=== PATIENT | female | born 1965 | race Caucasian/White ===

== ENCOUNTER → 2019-08-13 16:36 | Outpatient (BNVA) | payer OTHER, SELFPAY | PROVIDERS: Family Provider Nurse Practitioner Family; PCP Nurse Practitioner Family; Visit Provider Registered Nurse | DX: E03.9 Hypothyroidism, unspecified (principal); F41.1 Generalized anxiety disorder | CPT/HCPCS: 84443 ==

== ENCOUNTER → 2021-05-26 11:45 | Outpatient (BNVA) | payer OTHER, SELFPAY | PROVIDERS: Family Provider Nurse Practitioner Family; PCP Registered Nurse; Visit Provider Registered Nurse | DX: E03.9 Hypothyroidism, unspecified (principal); F41.1 Generalized anxiety disorder; F41.8 Other specified anxiety disorders; N95.1 Menopausal and female climacteric states; F17.210 Nicotine dependence, cigarettes, uncomplicated | CPT/HCPCS: 84443 ==

== ENCOUNTER → 2021-07-16 11:00 | Outpatient (BNVA) | payer SELFPAY | PROVIDERS: Family Provider Nurse Practitioner Family; PCP Registered Nurse; Visit Provider Registered Nurse | DX: E78.5 Hyperlipidemia, unspecified (principal); F41.8 Other specified anxiety disorders; E03.9 Hypothyroidism, unspecified; E55.9 Vitamin D deficiency, unspecified; E66.9 Obesity, unspecified | CPT/HCPCS: 80053; 80061; 82306; 84443; 85025 ==

== ENCOUNTER → 2021-09-14 13:26 | Outpatient (BNVA) | payer SELFPAY | PROVIDERS: Family Provider Nurse Practitioner Family; PCP Registered Nurse; Visit Provider Nurse Practitioner Family | DX: S99.912A Unspecified injury of left ankle, initial encounter (principal); X58.XXXA Exposure to other specified factors, initial encounter; M77.32 Calcaneal spur, left foot | CPT/HCPCS: 73600 ==

== ENCOUNTER 2021-09-21 14:54 | Outpatient (CLI) | payer SELFPAY | END 2021-09-21 14:55 | disposition home or self-care (01) | LOC: SPT 14:55 | PROVIDERS: Family Provider Nurse Practitioner Family; PCP Registered Nurse; Visit Provider Podiatrist Foot & Ankle Surgery | DX: Z46.89 Encounter for fitting and adjustment of other specified devices (principal); M25.572 Pain in left ankle and joints of left foot; M84.372D Stress fracture, left ankle, subsequent encounter for fracture with routine healing; S86.312D Strain of muscle(s) and tendon(s) of peroneal muscle group at lower leg level, left leg, subsequent encounter; X58.XXXD Exposure to other specified factors, subsequent encounter | CPT/HCPCS: 97760; L4361 ==

== ENCOUNTER 2021-10-05 15:48 | Outpatient (CLI) | payer SELFPAY | END 2021-10-05 15:49 | disposition home or self-care (01) | LOC: SPT 15:48 | PROVIDERS: Family Provider Nurse Practitioner Family; PCP Registered Nurse; Visit Provider Podiatrist Foot & Ankle Surgery | DX: Z46.89 Encounter for fitting and adjustment of other specified devices (principal); M25.572 Pain in left ankle and joints of left foot | CPT/HCPCS: 97760; L1902 ==

== ENCOUNTER 2021-11-26 12:45 | Day surgery (SDC) | payer OTHER, SELFPAY ==
[2021-11-25 13:03] VITALS: BMI 34.9
[2021-11-26] VITALS (7 sets, daily range): BP systolic 130–147; BP diastolic 72–98; PULSE 61–76; RESP 16–18; TEMP 36.3–36.9; O2SAT 93–99
--- NOTE | 2021-11-26 | XR_ITS ---
WS: [id number] Left ankle, C-arm fluoroscopy, 11/26/2021 Clinical Data: GERALDINE PICS Comparison: None. Findings: AP and lateral C-arm images of the left ankle are underpenetrated. There are orthopedic pins which ov erlie the talus. XR/XR ankle LT min 3V* [id number] Impression: Orthopedic intervention into the left talus.
--- NOTE | 2021-11-26 | SCC_ITS ---
Procedure done: 1. Left lateral ankle ligament repair/modified Brostr?m with internal brace CPT 62207 2. Left peroneus brevis tendon repair CPT 99639-23 3. Left foot open plantar fasciotomy CPT 82688-9 33 seconds of fluoroscopic guidance, for a cumulative dose of 0.7 mGy, was provided to Dr. Owen by the radiology department. C-arm images of the LEFT ankle were saved for the patient's permanent record. [facility]
[2021-11-26] MEDS: gabapentin 300 mg Capsule PO (13:47)
[2021-11-26] MEDS: sodium chloride 0.9% 1,000 ML 30 ML IV (13:47)
[2021-11-26] MEDS: CELEcoxib 200 mg Capsule 400 MG PO (13:48)
[2021-11-26] MEDS: midazolam 1 mg/mL INJ 2 mL 2 MG IVP ×2 (14:03→15:25)
--- NOTE | 2021-11-26 15:06 | ANES.PREANE2 ---
Pre-Anesthetic Assessment Height/Weight: Height 1.73 m Weight 104.326 kg Temp Pulse Resp BP Pulse Ox O2 Del Method 98.5 F 69 18 131/88 99 11/26/21 13:22 11/26/21 13:22 11/26/21 13:22 11/26/21 13:22 11/26/21 13:22 11/26/21 13:34 Preop Diagnosis: Left peroneal tendon tear, chronic ankle instability Operation Date: 11/26/21 14:35 Proposed Procedures p Left peroneal tendon repair CPT 50804; 2. Left ankle modified Brostrom repair CPT 24813 S86.3312A,M25.372,S93.492D(Left) - Tobi Owen DPM s Brostrom Procedure Modified Mingstrom(Left) - Tobi Owen DPM Familial anesthetic complications: none Was Beta Bud taken within 24 hours: N/A Was Clonidine taken within 24 hours: N/A Last intake: Intake Last Liquid Date 11/26/21 Last Liquid Time 10:00 Last Solid Date 11/25/21 Last Solid Time 23:59 Social Tobacco and No alcohol Exam alert, oriented x 3 and regular rate & rhythm Airway Submandibular: within normal limits Cervical ROM: within normal limits Mallampati: Class II Dentition: full Pulmonary Chronic Obstructive Pulmonary Disease Metabolic Morbid Obesity and Thyroid Disease Neuropsych Anxiety and Depression Anesthetic Plan ASA status: 3 Anesthesia: General and Regional (specify below) (pop blk) Medications/Allergies Home Medications Medication Instructions Recorded Confirmed Last Taken Type buspirone 10 mg tablet 30 mg PO DAILY anxiety 05/26/21 11/26/21 11/25/21 History levothyroxine 125 mcg tablet See Rx Instructions .Route 05/27/21 11/26/21 11/26/21 Rx .COMPLEX #90 tabs cholecalciferol (vitamin D3) 1,250 50,000 unit PO .once a week 09/15/21 11/26/21 11/25/21 Rx mcg (50,000 unit) capsule days #12 caps Cam Boot #1 ea 09/21/21 11/13/21 Unknown Rx ASO brace #1 ea 10/05/21 11/13/21 Unknown Rx fluoxetine 20 mg capsule See Rx Instructions .Route 11/16/21 11/26/21 11/25/21 Rx .COMPLEX #90 caps Allergies Allergy/AdvReac Type Severity Reaction Status Date / Time benzocaine Allergy Unknown Verified 11/25/21 12:59 tioconazole Allergy rash Verified 11/25/21 12:59 [From Monistat 1 (tioconazole)] Current Medications Generic Name Dose Route Start Last Admin Trade Name Freq PRN Reason Stop Dose Admin Sodium Chloride 1,000 mls @ 30 mls/hr 11/26/21 13:15 11/26/21 13:47 Sodium Chloride 0.9% IV 11/27/21 13:14 30 mls/hr .Q24H JOE Administration Midazolam HCl 2 mg 11/26/21 13:05 11/26/21 14:03 Midazolam 1 Mg/Ml Inj 2 Ml IVP 2 mg Q5M PRN Administration Preop Anxiety PFSH Anesthesia Medical History Cigarette smoker Vitamin D deficiency Social History Smoking and tobacco status: current every day smoker Alcohol intake: never Adopted: No Caregiver/support person: No Lives independently: No Household members: spouse Marital status: service: No Current occupational status: employed Sexually active: Yes Current gender identity: Female Data Anesthesia Cardiac Studies: No Data to Display
--- NOTE | 2021-11-26 16:52 | W.PM.OPSUD ---
Surgery/Procedure H&P Update DATE OF PROCEDURE: November 26, 2021 DATE H&P PERFORMED: 11/13/21 CHANGES TO PREVIOUS DOCUMENTATION: No changes PREOP DIAGNOSIS: Left peroneal tendon tear, chronic ankle instability PRIMARY INDICATION FOR PROCEDURE: Left lateral ankle instability, peroneal tendon tear, chronic plantar fasciitis PLANNED PROCEDURE: Operation Date: 11/26/21 14:35 Proposed Procedures p Left peroneal tendon repair CPT 86485; 2. Left ankle modified Brostrom repair CPT 88655 S86.3312A,M25.372,S93.492D(Left) - Tobi Owen DPM s Martínez Procedure Modified Martínez(Left) - Tobi Owen DPM
[2021-11-26] MEDS: ceFAZolin 2,000 MG in sodium chloride 0.9% (plus) 50 ML 100 MG IV (17:17)
[2021-11-26] MEDS: HYDROcodone-acetaminophen 5-325 mg Tablet 1 TAB PO (19:52)
--- NOTE | 2021-11-26 21:45 | P.OP_ITS ---
Operative Report Date of procedure: November 26, 2021 Pre-op diagnosis: Preop Diagnosis Left peroneal tendon tear, chronic ankle instability, plantar fasciitis Post-op diagnosis: Same Post-op findings: Large split longitudinal tear peroneus brevis tendon of left ankle from the retromalleolar region extending distally approximately 6 cm Procedure done: 1. Left lateral ankle ligament repair/modified Brostr?m with internal brace CPT 59846 2. Left peroneus brevis tendon repair CPT 74567-45 3. Left foot open plantar fasciotomy CPT 00520-81 Implants: Internal brace from [employer], suture tack anchors x3 from [employer], amnion matrix tendon repair from [employer] Pathology: None Surgeon: Dr. Tobi Owen, D.P.M. Estimated blood loss: Less than 20 Complications: None Findings: See above Brief History: Patient has a longstanding history of lateral ankle instability and peroneal tendon issues. Patient also has longstanding plantar fasciitis. Conservative measures have been attempted to this point and the patient has opted for surgic al intervention at this time. Procedure: Patient is a 56-year-old female that has a history of plantar fasciitis, chronic ankle instability and peroneal tendon tear all to the left foot and ankle. The patient has had the aforementioned chief complaint for some time. Conservative treatment measures have been attempted and the patient has opted for surgical intervention at this time. A lengthy discussion regarding the procedure, including risks and complications has been had with the patient and is noted in the recent clinic note. Written and verbal consent have been obtained. All patient questions have been answered to the patient?s satisfaction. No written or verbal guarantees have been given or implied. The patient has been NPO since midnight. The history has been reviewed and the history and physical is current. The signed consent was confirmed and placed in the patient chart. Patient imaging has been reviewed and is consistent with the diagnosis. Under mild sedation, the patient was brought into the operating room and placed on the table in the supine position. IV antibiotics were given by the anesthesia team as preoperative surgical prophylaxis. General sedation was then performed by the anesthesia team. A popliteal block was performed by the anesthesia department. A pneumatic tourniquet was then placed about the left th igh. The operative extremity was then prepped and draped in the usual fashion. The extremity was then elevated and exsanguinated before the tourniquet was inflated to 325 mmHg. After inflation, the following procedure was then performed. Attention was directed to the lateral aspect of the left ankle where an 8 cm incision was made following the course of the peroneal tendons and over the lateral malleolus. Dissection was carried down through subcutaneous and superficial fascia. All bleeders were cauterized as necessary. Dissection was carried down to the peroneal tendon sheath which was incised from the distal aspect of the fibula and reflected to expose the underlying peroneal tendons. The peroneal tendons were examined. The peroneus longus was noted to be healthy and tubular in shape with no tears or signs of degeneration. Upon further inspecting the peroneal tendon sheath it was noted to be full of tenosynovitis and inflammation tissue. This was sharply excised using a #15 blade. Peroneus brevis was then visualized and was noted to be flattened and degenerative with a large longitudinal split tear measuring approximately 6 cm in length. There was also noted to be a low-lying peroneus brevis muscle belly in the retromalleolar region. A #15 blade was used to excise the disease portion of the peroneus brevis tendon as well as a portion of the low-lying muscle belly. The tenosynovitis in this area was also sharply excised using a #15 blade. Next, attention was directed to retubularization of the peroneus brevis tendon. Using 2-0 Ethibond the peroneus brevis tendon was retubularized. Next, attention was directed to the lateral ankle ligaments. The anterior talofibular ligament. Wispy and degenerative. A #15 blade was used to excise this from the fibula and reflected anteriorly. Next, a stab incision was made just distal to this down to the level of the talus. The guide for the internal brace was then inserted into this stab incision and the guidewire was driven into the talus in preparation for the internal brace. Next, the guidewire was overdrilled and tapped before the swivel lock anchor was inserted into the talus. Good positioning of this was visualized on C-arm imaging prior to insertion of the swivel lock. Next attention was directed to the anterior fibula where 2 holes were drilled for the suture tack anchors. These were inserted in standard fashion. A hole for the internal brace was then drilled into the fibula as well. The suture tacks were then passed through the anterior talofibular ligament to perform the Brostr?m repair. The internal brace was then inserted into the fibula to augment the repair. Next, attention was directed to the distal fibula a suture tack anchor was inserted into the distal fibula and the arms of the suture tack were passed through the peroneal tendon sheath and superior peroneal retinaculum. Next, the amnion matrix from [employer] was used to wrap the peroneus brevis tendon. The tendon sheath and superior retinaculum were then tensioned down and closed. The site was lightly irrigated with sterile saline before attention was directed to closure. Deep tissue was closed with 2-0 Vicryl followed by subcuticular closure with 4-0 Vicryl and skin closed with 4-0 nylon in running interlocking fashion. Attention was then directed to the plantar aspect of the left foot at the level of the medial tubercle of the posterior calcaneal tuberosity. A #15 blade was used to make a 1 cm stab incision over this area. Blunt dissection was carried down to the level of the plantar fascia using a hemostat. Upon visualizing the medial and central bands of the plantar fascia and #15 blade was used to transect the medial band. Good release of this medial band was felt with engagement of the windlass mechanism. The site was then irrigated with sterile saline before being closed with 4-0 nylon in horizontal mattress fashion. All incision sites were then anesthetized further with 20 cc of Exparel. The incision sites were dressed with Xeroform 4 x 4 gauze Kerlix before being placed in a well-padded below the knee posterior splint. The tourniquet was let down good hyperemic response was noted to all digits of the left foot. The patient tolerated the procedure and anesthesia well and without complication. The patient was transported from the operating room to the recovery room with vital signs stable and vascular status intact to all digits of the left foot. The patient was given both written and verbal instructions to remain strict nonweightbearing to the operative extremity, to keep dressings/splint clean, dry and intact and to take pain medication as directed. The patient will follow-up in the outpatient setting at their scheduled appointment. The patient was discharged with my personal number and was instructed to call if any questions or issues should arise. They were discharged home once anesthesia criteria was met.
--- NOTE | 2021-11-26 23:15 | ANE.PACU2 ---
Inpatient post-anesthesia follow up: Airway intact: Yes Vital signs: Temperature 97.4 F Pulse Rate 64 Respiratory Rate 18 Blood Pressure 140/79 Pulse Oximetry 98 Oxygen Delivery Me thod Room Air Oxygen Flow Rate 6 Fraction of Inspir ed Oxygen Hydration adequate: Yes Nausea and vomiting: No Pain level: 2 Mental status: Baseline
== END 2021-11-26 20:10 | disposition home or self-care (01) ==
PROVIDERS: PCP Registered Nurse; Visit Provider Podiatrist Foot & Ankle Surgery
PROC: (CPT 27659; principal; 2021-11-26 14:25)
PROC: (CPT 27698; 2021-11-26 14:25)
DX: S86.312A Strain of muscle(s) and tendon(s) of peroneal muscle group at lower leg level, left leg, initial encounter (principal); M25.372 Other instability, left ankle; M72.2 Plantar fascial fibromatosis; J44.9 Chronic obstructive pulmonary disease, unspecified; E66.01 Morbid (severe) obesity due to excess calories; Z68.35 Body mass index [BMI] 35.0-35.9, adult; F41.9 Anxiety disorder, unspecified; F32.A Depression, unspecified; F17.210 Nicotine dependence, cigarettes, uncomplicated; E55.9 Vitamin D deficiency, unspecified
CPT/HCPCS: 27659; 27698; 28008; 73610; 76000; C1713; C1762; C9290; J1100; J2250; J2405; J2704; J2795; J3010; J7030

== ENCOUNTER → 2022-03-23 15:49 | Outpatient (BNVA) | payer OTHER, SELFPAY | PROVIDERS: PCP Registered Nurse; Visit Provider Registered Nurse | DX: E53.8 Deficiency of other specified B group vitamins (principal); F41.8 Other specified anxiety disorders; R73.9 Hyperglycemia, unspecified; E55.9 Vitamin D deficiency, unspecified | CPT/HCPCS: 80053; 82306; 82607; 83036; 85025 ==

== ENCOUNTER → 2022-04-16 14:00 | Outpatient (BNVA) | payer OTHER, SELFPAY | PROVIDERS: PCP Registered Nurse; Visit Provider Nurse Practitioner Women's Health | DX: Z12.4 Encounter for screening for malignant neoplasm of cervix (principal) | CPT/HCPCS: 87624 ==

== ENCOUNTER 2022-05-06 11:40 | Outpatient (CLI) | payer OTHER, SELFPAY ==
--- NOTE | 2022-05-06 11:51 | MM_ITS ---
WS: [id number] BILATERAL SCREENING DIGITAL TOMOSYNTHESIS MAMMOGRAM WITH CAD HISTORY: Screening. COMPARISON: 03/06/2020 and 09/19/2017 Bilateral CC and MLO views with tomosynthesis and synthetic mammography submitted. Computer aided det ection analyzed. Breast composition: The breasts are heterogeneously dense, which may obscure small masses. No suspici ous masses, microcalcifications or architectural distortion. Stable 5 mm nodule central LEFT breast. MM/[place] [id number] IMPRESSION: BI-RADS: 2-Benign FOLLOW UP: 1 Year Follow-up
== END 2022-05-06 11:41 | disposition home or self-care (01) ==
PROVIDERS: PCP Registered Nurse; Visit Provider Nurse Practitioner Women's Health
DX: Z12.31 Encounter for screening mammogram for malignant neoplasm of breast (principal)
CPT/HCPCS: 77063; 77067

== ENCOUNTER → 2022-09-21 11:33 | Outpatient (BNVA) | payer OTHER, SELFPAY | PROVIDERS: PCP Registered Nurse; Visit Provider Registered Nurse | DX: F41.8 Other specified anxiety disorders (principal); E03.9 Hypothyroidism, unspecified | CPT/HCPCS: 80053; 84443 ==

== ENCOUNTER 2023-05-26 13:43 | Outpatient (CLI) | payer OTHER, SELFPAY ==
--- NOTE | 2023-05-26 15:00 | MM_ITS ---
WS: [id number] VIEWS: MLO and CC views both breasts. 3D digital tomosynthesis is also included in this exam. Comparison made with prior exam of 05/09/2012, 01/07/2016, 09/19/2017, 03/06/2020, 05/06/2022.. Findings: There was no sign of mass, architectural distortion or suspicious calcification in either breast. The re are scattered areas of fibroglandular density Impression: MM/[place] [id number] BI-RADS: 2-Benign finding. FOLLOW-UP: 1 Year Follow-up This mammogram was also analyzed by the Computer Aided Detection System R2 Imag e Sandwich Wrapper.
== END 2023-05-26 13:44 | disposition home or self-care (01) ==
LOC: RAD 13:43
PROVIDERS: PCP Registered Nurse; Visit Provider Nurse Practitioner Women's Health
DX: Z12.31 Encounter for screening mammogram for malignant neoplasm of breast (principal)
CPT/HCPCS: 77063; 77067

== ENCOUNTER → 2024-07-17 14:34 | Outpatient (BNVA) | payer OTHER, SELFPAY | PROVIDERS: PCP Registered Nurse; Visit Provider Registered Nurse | DX: E53.8 Deficiency of other specified B group vitamins (principal) | CPT/HCPCS: 82607 ==

== ENCOUNTER 2024-08-15 12:43 | Outpatient (CLI) | payer OTHER, SELFPAY ==
--- NOTE | 2024-08-15 12:40 | MM_ITS ---
WS: [id number] BILATERAL 3D TOMOSYNTHESIS DIGITAL SCREENING MAMMOGRAPHY WITH CAD CLINICAL INFORMATION: Z12.31 - Encounter for screening mammogram for malignant ... HISTORY: Screening mammogram. No current complaints. COMPARISON: 2023 TECHNIQUE: Bilateral CC and MLO views. FINDINGS: Scattered fibroglandular densities bilaterally. No suspicious focal mass, asymmetry, calcifications, or architectural distortion. No evidence of malignancy. Lucent centered calcification LEFT breast. MM/MM scr tomosynthesis [id number] IMPRESSION: DENSITY: There are scattered areas of fibroglandular density. BI-RADS: 2 - Benign FOLLOW UP: 1 Year Follow-up Recommend return to annual screening mammography.
== END 2024-08-15 12:44 | disposition home or self-care (01) ==
PROVIDERS: PCP Nurse Practitioner Women's Health; Visit Provider Nurse Practitioner Women's Health
DX: Z12.31 Encounter for screening mammogram for malignant neoplasm of breast (principal); R92.323 Mammographic fibroglandular density, bilateral breasts; R92.1 Mammographic calcification found on diagnostic imaging of breast
CPT/HCPCS: 77063; 77067

== ENCOUNTER → 2024-11-13 13:26 | Outpatient (BNVA) | payer OTHER, SELFPAY | PROVIDERS: PCP Registered Nurse; Visit Provider Registered Nurse | DX: R30.0 Dysuria (principal) | CPT/HCPCS: 81000 ==